=== PATIENT | female | born 1975 | race African-American/Black ===

== ENCOUNTER 2016-10-29 23:23 | Emergency (ER) | payer MEDICAID ==
[~2016-10-29] VITALS: Ht 165.1 cm; Wt 64.0 kg
[~2016-10-29 23:23] MED LIST: DILANTIN; FOLI-43 PO; MULT-1146 PO; THIA100T13 PO
[2016-10-30] MEDS ORDERED: SODIUM CHLORIDE 0.9% 1,000 ML IV ONE (01:41)
[2016-10-30] MEDS ORDERED: IBUPROFEN 800MG TABLET PO ONE (01:45)
[2016-10-30 02:01] LABS: EOSINOPHILS % 1.2 % (0.0-5.0); HEMATOCRIT. 25.3 % (36.0-48.0); HEMOGLOBIN. 7.7 g/dL (12.0-16.0); LYMPHOCYTES % 45.6 % (20.0-50.0); MEAN CORPUSCULAR HEMOGLOBIN 25.4 pg (28.0-32.0); MEAN CORPUSCULAR VOLUME 83.1 fL (81.0-99.0); MONOCYTES % 10.3 % (2.0-8.0); NEUTROPHILS % 41.9 % (40.0-76.0); PLATELET 154 x1000/uL (130-400); RED BLOOD CELL COUNT 3.04 mill/uL (4.2-5.4); RED CELL DISTRIBUTION WIDTH 25.8 % (11.6-14.6)
[2016-10-30 02:05] LABS: CHLORIDE 107 mEq/L (98-107)
[2016-10-30 02:14] LABS: CARBON DIOXIDE 24 mEq/L (21-32)
[2016-10-30 02:46] LABS: ETHANOL BLOOD 372 mg/dL
[2016-10-30 03:30] LABS: UCG SCREEN NEGATIVE
[2016-10-30 05:04] VITALS: BP 110/68
[2016-10-30] MEDS ORDERED: LIDOCAINE HCL 1% 20ML VIAL (Pyxis) INJ MC ONE (05:15)
[2016-10-30] MEDS ORDERED: BACITRACIN ZINC OINT UDPKT TOP ONE (05:15)
== END 2016-10-30 11:08 | disposition home or self-care (01) ==
LOC: ER 23:30
DX: S06.9X9A Unspecified intracranial injury with loss of consciousness of unspecified duration, initial encounter (principal); S01.111A Laceration without foreign body of right eyelid and periocular area, initial encounter; Y90.8 Blood alcohol level of 240 mg/100 ml or more; F10.10 Alcohol abuse, uncomplicated; G40.909 Epilepsy, unspecified, not intractable, without status epilepticus; Y04.0XXA Assault by unarmed brawl or fight, initial encounter; Y93.89 Activity, other specified; Y92.488 Other paved roadways as the place of occurrence of the external cause
CPT/HCPCS: 12011; 36415; 70450; 70486; 72125; 80048; 81025; 85025; 96360; 99285; G0482; J3490; J7030; Z7610

== ENCOUNTER 2017-07-07 04:17 | Emergency (ER) | payer MEDICAID ==
[~2017-07-07] VITALS: Ht 162.6 cm; Wt 58.0 kg
[~2017-07-07 04:17] MED LIST changes: +FURO20TA4 PO; +PHEN100C4 PO; +SPIR25TA4 PO; +TRAN650T2 PO
[2017-07-07] MEDS ORDERED: MORPHINE SULFATE 4 MG/ML CPJ (NOT FOR IM USE) IV STA (06:24)
[2017-07-07] MEDS ORDERED: ONDANSETRON HCL 4MG/2ML VIAL IV STA (06:24)
[2017-07-07 06:57] LABS: BASOPHILS % 0.4 % (0.0-2.0); EOSINOPHILS % 0.6 % (0.0-5.0); HEMATOCRIT. 25.4 % (36.0-48.0); HEMOGLOBIN. 8.3 g/dL (12.0-16.0); LYMPHOCYTES % 10.1 % (20.0-50.0); MEAN CORPUSCULAR HEMOGLOBIN 33.9 pg (28.0-32.0); MEAN CORPUSCULAR VOLUME 103.5 fL (81.0-99.0); MEAN PLATELET VOLUME 6.7 fl (7.4-10.4); MONOCYTES % 9.8 % (2.0-8.0); NEUTROPHILS % 79.1 % (40.0-76.0); PLATELET 344 x1000/uL (130-400); RED BLOOD CELL COUNT 2.45 mill/uL (4.2-5.4); RED CELL DISTRIBUTION WIDTH 24.1 % (11.6-14.6)
[2017-07-07 07:04] LABS: INR 1.3; PROTHROMBIN TIME 13.7 sec (9.4-11.6)
[2017-07-07 07:13] LABS: CHLORIDE 108 mEq/L (98-107)
[2017-07-07 07:16] LABS: HCG SCREEN NEGATIVE
[2017-07-07 08:11] LABS: CLARITY URINE CLEAR (CLEAR); COLOR URINE YELLOW (YELLOW); KETONES URINE NEGATIVE (NEGATIVE); LEUKOCYTE ESTERASE URINE NEGATIVE (NEGATIVE); NITRITE URINE NEGATIVE (NEGATIVE); OCCULT BLOOD URINE NEGATIVE (NEGATIVE); PH URINE 5.5 (4.5-8.0); PROTEIN URINE TRACE (NEGATIVE); SPECIFIC GRAVITY URINE 1.017 (1.005-1.030); UROBILINOGEN URINE 0.2 E.U./dL (0.2-1.0)
[2017-07-07 09:28] VITALS: BP 100/68
== END 2017-07-07 09:40 | disposition home or self-care (01) ==
LOC: ER 04:45
DX: R18.8 Other ascites (principal); D53.9 Nutritional anemia, unspecified; E87.6 Hypokalemia; F10.20 Alcohol dependence, uncomplicated; J45.909 Unspecified asthma, uncomplicated; G40.909 Epilepsy, unspecified, not intractable, without status epilepticus; F17.210 Nicotine dependence, cigarettes, uncomplicated; Z91.14 Patient's other noncompliance with medication regimen; Z98.84 Bariatric surgery status; Z71.6 Tobacco abuse counseling
CPT/HCPCS: 36415; 80053; 81003; 83605; 83690; 83880; 84703; 85025; 85610; 99284; 99406; Z7610

== ENCOUNTER 2022-05-03 22:15 | Emergency (ER) | payer MEDICAID ==
[~2022-05-03] VITALS: Ht 170.2 cm; Wt 75.0 kg
[~2022-05-03 22:15] MED LIST changes: -SPIR25TA4 PO; +SPIR25TA6 PO
[2022-05-04 01:44] VITALS: BP 91/60
== END 2022-05-04 03:32 | disposition home or self-care (01) ==
LOC: ER 22:15
DX: F10.129 Alcohol abuse with intoxication, unspecified (principal); Y90.0 Blood alcohol level of less than 20 mg/100 ml; Z79.899 Other long term (current) drug therapy
CPT/HCPCS: 99283